=== PATIENT | female | born 1980 | race African-American/Black ===

== ENCOUNTER 2019-03-28 20:53 | Emergency (ER) | payer MEDICAID, OTHER ==
[~2019-03-28] VITALS: Ht 170.2 cm; Wt 77.1 kg
[~2019-03-28 20:53] MED LIST: DIVA500T53; HAL1T
[2019-03-28 20:55] VITALS: BP 134/76
== END 2019-03-29 00:35 | disposition left against medical advice (07) ==
LOC: ER 20:53 → EDBD 20:53 → ER 03-29 00:35
DX: R10.9 Unspecified abdominal pain (principal); Z53.21 Procedure and treatment not carried out due to patient leaving prior to being seen by health care provider